=== PATIENT | female | born 1975 | race Two or more races ===

== ENCOUNTER 2021-04-10 19:58 | Inpatient (IN) | payer OTHER ==
[~2021-04-10] VITALS: Ht 162.6 cm; Wt 72.6 kg
[~2021-04-10 19:58] MED LIST: PROTONIX40 MG PO
[2021-04-13] MEDS ORDERED: INTEGRA PLUS C1 EACH PO (09:10)
== END 2021-04-13 09:58 | disposition home or self-care (01) | DRG 812 ==
LOC: ER 19:58 → MEDI 04-11 11:11
PROVIDERS: ADMIT Internal Medicine; ATTEND Internal Medicine
PROC: BW21YZZ Computerized Tomography (CT Scan) of Abdomen and Pelvis using Other Contrast (ICD-10-PCS; 2021-04-10)
PROC: 30233N1 Transfusion of Nonautologous Red Blood Cells into Peripheral Vein, Percutaneous Approach (ICD-10-PCS; principal; 2021-04-11)
DX: D64.9 Anemia, unspecified (principal); N93.8 Other specified abnormal uterine and vaginal bleeding; A08.8 Other specified intestinal infections; R11.10 Vomiting, unspecified; R10.11 Right upper quadrant pain; Z20.822 Contact with and (suspected) exposure to COVID-19

== ENCOUNTER 2022-01-19 05:12 | Emergency (ER) | payer OTHER ==
[~2022-01-19] VITALS: Ht 149.9 cm; Wt 64.4 kg
[~2022-01-19 05:12] MED LIST changes: +INTEGRA PLUS C1 EACH PO
== END 2022-01-19 11:21 | disposition home or self-care (01) ==
LOC: ER 05:12
DX: M25.512 Pain in left shoulder (principal); M79.602 Pain in left arm

== ENCOUNTER 2022-11-12 02:04 | Emergency (ER) | payer OTHER ==
[~2022-11-12] VITALS: Ht 144.8 cm; Wt 62.6 kg
[2022-11-12] MEDS ORDERED: DICLOFENAC SODI75 MG PO (02:46)
== END 2022-11-12 02:52 | disposition home or self-care (01) ==
LOC: ER 02:04
DX: M75.52 Bursitis of left shoulder (principal)

== ENCOUNTER 2022-11-12 15:35 | Emergency (ER) | payer OTHER ==
[~2022-11-12] VITALS: Ht 144.8 cm; Wt 62.6 kg
[~2022-11-12 15:35] MED LIST changes: +DICLOFENAC SODI75 MG PO
== END 2022-11-12 19:44 | disposition home or self-care (01) ==
LOC: ER 15:35
DX: M25.522 Pain in left elbow (principal); M25.512 Pain in left shoulder

== ENCOUNTER 2023-10-22 12:50 | Emergency (ER) | payer OTHER ==
[~2023-10-22] VITALS: Ht 144.8 cm; Wt 62.6 kg
[2023-10-22] MEDS ORDERED: ACID CONTROLLER10 MG (13:57)
[2023-10-22] MEDS ORDERED: ACID REDUCER20 M1 PO (13:57)
[2023-10-22] MEDS ORDERED: GRALISE600 MG PO (13:58)
[2023-10-22] MEDS ORDERED: MAGNESIUM200 MG PO (13:58)
[2023-10-22 17:10] LABS: HEMATOCRIT 33.2 % (36.0-45.00); HEMOGLOBIN 10.3 g/dL (12.0-15.00); MEAN CORPUSCULAR HEMOGLOBIN 18.4 pg (27.00-32.0); RED BLOOD COUNT 5.61 M/uL (4.00-6.00)
[2023-10-22 17:17] LABS: MEAN CELL VOLUME 59.2 fL (80.00-100.00); PLATELET COUNT 627 K/uL (150-450)
[2023-10-22 17:24] LABS: ALBUMIN 4.1 gm/dL (3.4-5.0); BILIRUBIN TOTAL 0.46 mg/dL (0.3-1.2); CALCIUM 9.3 mg/dL (8.5-10.1); CREATININE SERUM 0.82 mg/dL (0.55-1.02); GFR 75.05; GLOBULINA 4.8 G/DL (2.4-3.5); POTASSIUM 3.7 mEq/L (3.5-5.1); TOTAL PROTEIN 8.9 gm/dL (6.4-8.2)
[2023-10-22 19:41] LABS: RED CELL DISTRIBUTION WIDTH 21.6 % (11.5-14.5)
[2023-10-22] MEDS ORDERED: BUTALBIT-ACETA1 EACH PO (21:03)
== END 2023-10-22 21:23 | disposition home or self-care (01) ==
LOC: ER 12:50
PROVIDERS: General Practice
DX: R51.9 Headache, unspecified (principal)